=== PATIENT | male | born 1975 | race Caucasian/White ===

== ENCOUNTER 2018-09-14 12:14 | Emergency (ER) | payer OTHER, SELFPAY ==
[2018-09-14 12:22] VITALS: BP 138/93; PULSE 74; RESP 15; TEMP 36.8; O2SAT 100
--- NOTE | 2018-09-14 12:53 | DI.RAD.S_ITS ---
PROCEDURE: XR CHEST 1V INDICATIONS: chest pain TECHNIQUE: One view of the chest was acquired. COMPARISON: None. FINDINGS: Surgical changes and devices: None. Lungs and pleura: Lungs are clear. No pleural effusions or pneumothorax. Mediastinum: Mediastinal contours appear normal. Heart size is normal. Bones and chest wall: No suspicious bony lesions. Overlying soft tissues appear unremarkable. IMPRESSION: No acute cardiopulmonary pathology. Dictated by: Donell Looney M.D. on 09/14/2018 at 13:16 Approved by: Donell Looney M.D. on 09/14/2018 at 13:17
--- NOTE | 2018-09-14 12:55 | ED.ARRPALP ---
HPI - Arrhythmia/Palpitations General Chief Complaint: Dizziness Stated Complaint: 'HEART ISSUES' Time Seen by Provider: 09/14/18 12:22 Source: patient Mode of arrival: ambulatory Limitations: no limitations History of Present Illness HPI narrative: Patient is a 43-year-old male who presents with heart palpitations. 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 He has symptoms follow-up to monitor, he is noted to be in bigeminy at times. He says he drinks 1 cup of coffee daily. No excessive alcohol use. Of palpitations got much worse today. Related Data Previous Rx's Medication Instructions Recorded metoprolol tartrate 12.5 mg PO BID #30 tab 09/14/18 Allergies Allergy/AdvReac Type Severity Reaction Status Date / Time No Known Drug Allergies Allergy Verified 09/14/18 13:28 Review of Systems Review of Systems GENERAL: Denies chills, fatigue, malaise, fever, sweats, travel HEENT: Denies sinus pain, ear pain, sore throat, difficulty swallowing, neck pain RESPIRATORY: Denies dyspnea, cough, wheezing, hemoptysis, sputum. CARDIOVASCULAR: See HPI GASTROINTESTINAL: Denies nausea, vomiting, abdominal pain, diarrhea, constipation, melena. : Denies dysuria, frequency, incontinence, hematuria, urinary retention, flank pain. MUSCULOSKELETAL: Denies weakness, joint pain, or bony pain SKIN: No rash, no erythema, no pruritus NEUROLOGIC: Denies weakness, dizziness, headache, numbness, change in speech, confusion PSYCHIATRIC: No concerning psychosocial issues. 12 point review of systems is negative except for those stated above and HPI [facility] Medical History Low testosterone in male (Acute) Social History Smoking Status: Never smoker Social History Smoking Status: Never smoker Exam Initial Vital Signs Initial Vital Signs: Vital Signs Temperature 98.2 F 09/14/18 12:22 Pulse Rate 74 09/14/18 12:22 Respiratory Rate 15 09/14/18 12:22 Blood Pressure 138/93 H 09/14/18 12:22 Pulse Oximetry 100 09/14/18 12:22 GENERAL: Well-appearing, well-nourished and in no acute distress. HEENT: Head atraumatic,EOMI, pupils reactive, face symmetric, moist mucous membranes CARDIOVASCULAR: Regular rate and rhythm without murmurs, rubs or gallops. RESPIRATORY: Breath sounds equal bilaterally, no wheezes rales or rhonchi. ABDOMEN: Soft, nontender. Normoactive bowel sounds all 4 quadrants. No guarding or rebound. EXTREMITIES: Normal range of motion, no clubbing or edema. Neurovascularly intact NEUROLOGICAL: Alert and oriented x4.Normal gait and speech. Cranial nerves II through XII grossly intact. SKIN: Warm, dry, no laceration, no petechiae, no rashes or lesions. Course Orders Ordered: ED Orders 09/14/18 12:16 EKG-12 Lead Stat 09/14/18 12:45 Complete Blood Count AUTO DIFF Stat Comprehensive Metabolic Panel Stat Lipase Stat Thyroid Stimulating Hormone Stat Troponin & CK Cardiac Panel Stat 09/14/18 12:53 XR chest 1V Stat Vital Signs - 8 hr 09/14/18 12:22 09/14/18 13:02 09/14/18 13:51 Temperature 98.2 F Pulse Rate 74 68 66 Respiratory Rate 15 11 L 11 L Blood Pressure 138/93 H Blood Pressure [Right Arm] 122/78 121/77 Pulse Oximetry 100 100 100 09/14/18 14:11 09/14/18 14:41 Temperature Pulse Rate 62 65 Respiratory Rate 12 15 Blood Pressure 116/78 Blood Pressure [Right Arm] 118/70 Pulse Oximetry 99 98 MDM - Arrhythmia/Palpitations Lab Data Attestation: I reviewed the patient's lab results. Result diagrams: 09/14/18 12:45 09/14/18 12:45 Lab Results 09/14/18 09/14/18 09/14/18 Range/Units 12:45 12:45 12:45 WBC 8.6 (4.5-11.0) X10^3/uL RBC 5.48 (4.5-5.9) X10^6/uL Hgb 16.8 (13.5-17.5) g/dL Hct 47.1 (41-53) % MCV 86.0 (80-100) fL MCH 30.7 (26-34) PG MCHC 35.7 (30-36) % RDW 13.0 (11.6-14.8) % Plt Count 254 (150-400) X10^3/uL Neut % (Auto) 69.0 (50-75) % Lymph % (Auto) 22.5 L (25-40) % [place] % (Auto) 6.9 (3-14) % Eos % (Auto) 0.9 L (2-4) % Baso % (Auto) 0.7 (0-2) % Neut # (Auto) 5900 (7335-9914) /uL Lymph # (Auto) 1900 (8679-8146) /uL [place] # (Auto) 600 (0-900) /uL Eos # (Auto) 100 (0-450) /uL Baso # (Auto) 100 (0-100) /uL Sodium 137 (137-145) mmol/L Potassium 4.1 (3.4-5.1) mmol/L Chloride 97 L (98-107) mmol/L Carbon Dioxide 30 (22-32) mmol/L BUN 27 H (9-20) mg/dL Creatinine 1.00 (0.66-1.25) mg/dL Estimated GFR > 60.0 (>60) mL/min BUN/Creatinine Ratio 27.0 H (6-22) Glucose 93 (70-100) mg/dL Calcium 9.6 (8.4-10.2) mg/dL Total Bilirubin 1.1 (0.2-1.3) mg/dL AST 28 (17-59) IU/L ALT 33 (21-72) IU/L Alkaline Phosphatase 54 (38-126) U/L Total Creatine Kinase 133 (55-170) U/L CK-MB (CK-2) 1.09 (<2.37) ng/mL CK-MB (CK-2) Rel Index 0.8 L (1.5-5.0) % Troponin I < 0.012 (0.01-0.034) ng/mL Total Protein 7.6 (6.3-8.2) g/dL Albumin 4.5 (3.5-5.0) g/dL Globulin 3.1 (1.7-4.1) g/dL Albumin/Globulin Ratio 1.5 (1.0-2.8) Lipase 88 (23-300) U/L TSH 1.61 (0.47-4.68) uIU/mL Imaging Data Chest x-ray: Radiologist's impression: PROCEDURE: XR CHEST 1V INDICATIONS: chest pain TECHNIQUE: One view of the chest was acquired. COMPARISON: None. FINDINGS: Surgical changes and devices: None. Lungs and pleura: Lungs are clear. No pleural effusions or pneumothorax. Mediastinum: Mediastinal contours appear normal. Heart size is normal. Bones and chest wall: No suspicious bony lesions. Overlying soft tissues appear unremarkable. IMPRESSION: No acute cardiopulmonary pathology. Dictated by: Donell Looney M.D. on 09/14/2018 at 13:16 ECG Data Attestation: I personally reviewed and interpreted this ECG as follows: Prior ECG tracings: not available for review Interpretation: Normal sinus rhythm rate 74 PVC noted [place] interval [address] changes no T-wave inversion MDM Narrative Medical decision making narrative: Patient is noted to have frequent PVCs on the monitor but certainly not in bigeminy or trigeminy as he was earlier. He has been off strips tremulous at. He is becoming more symptomatic as time goes on. I discussed with him starting medication such as metoprolol he has follow-up with PCP next week. Discharge Plan Departure Patient Disposition: Home Clinical Impression: Frequent PVCs Discharge Date/Time: 09/14/18 14:43 Interventions: ED Discharge Assessment Last Done: 09/14/18 14:41 Instructions: Premature Ventricular Beats Activity Restrictions/Additional Instructions: *You have been diagnosed with frequent PVCs *What to do: PVCs are benign and less if they are becoming too frequent. *Continue to take medications as directed Metoprolol 12.5 mg twice a day *Follow up with your primary care provider in 2-3 days *Return to ER if you should have increasing chest pain heart palpitations, passing out or any new, worsening or concerning symptoms Prescriptions: New metoprolol tartrate 25 mg tablet 12.5 mg PO BID Qty: 30 RF: 0 Referrals: Deidra Le MD [Primary Care Provider] -
[2018-09-14 12:59] LABS: Add Manual Diff / Slide Review NO; Basophils Absolute Auto 100 /uL (0-100); Basophils Percent Auto 0.7 % (0-2); Eosinophils Absolute Auto 100 /uL (0-450); Eosinophils Percent Auto 0.9 % (2-4); Hematocrit 47.1 % (41-53); Hemoglobin 16.8 g/dL (13.5-17.5); Lymphocytes Absolute Auto 1900 /uL (1100-4500); Lymphocytes Percent Auto 22.5 % (25-40); Mean Corpuscular HGB Conc 35.7 % (30-36); Mean Corpuscular Hemoglobin 30.7 PG (26-34); Monocytes Absolute Auto 600 /uL (0-900); Monocytes Percent Auto 6.9 % (3-14); Neutrophils Absolute Auto 5900 /uL (1500-7000); Platelet Count 254 X10^3/uL (150-400); Red Blood Cell Count 5.48 X10^6/uL (4.5-5.9); White Blood Cell Count 8.6 X10^3/uL (4.5-11.0)
[2018-09-14 13:02] VITALS: BP 122/78; PULSE 68; RESP 11; O2SAT 100
[2018-09-14 13:07] LABS: Alanine Aminotransferase 33 IU/L (21-72); Albumin 4.5 g/dL (3.5-5.0); Albumin Globulin Ratio 1.5 (1.0-2.8); Alkaline Phosphatase 54 U/L (38-126); Aspartate Aminotransferase 28 IU/L (17-59); Bilirubin Total 1.1 mg/dL (0.2-1.3); Blood Urea Nitrogen 27 mg/dL (9-20); Calcium 9.6 mg/dL (8.4-10.2); Carbon Dioxide 30 mmol/L (22-32); Chloride 97 mmol/L (98-107); Creatine Kinase 133 U/L (55-170); Estimated Glomerular Filt Rate > 60.0 mL/min (>60); Globulin 3.1 g/dL (1.7-4.1); Glucose 93 mg/dL (70-100); HEMOLYSIS 19 (0-50); Lipase 88 U/L (23-300); Potassium 4.1 mmol/L (3.4-5.1); Sodium 137 mmol/L (137-145); Total Protein 7.6 g/dL (6.3-8.2)
[2018-09-14 13:19] LABS: Troponin I < 0.012 ng/mL (0.01-0.034)
[2018-09-14 13:22] LABS: CKMB % Relative Index 0.8 % (1.5-5.0); Creatine Kinase MB 1.09 ng/mL (<2.37)
[2018-09-14 13:51] VITALS: BP 121/77; PULSE 66; RESP 11; O2SAT 100
[2018-09-14 14:01] LABS: Thyroid Stimulating Hormone 1.61 uIU/mL (0.47-4.68)
[2018-09-14 14:11] VITALS: BP 118/70; PULSE 62; RESP 12; O2SAT 99
[2018-09-14 14:41] VITALS: BP 116/78; PULSE 65; RESP 15; O2SAT 98
== END 2018-09-14 14:43 | disposition home or self-care (01) ==
PROVIDERS: Emergency Provider Emergency Medicine; PCP Internal Medicine Geriatric Medicine
DX: I49.3 Ventricular premature depolarization (principal); R42 Dizziness and giddiness; R00.2 Palpitations
CPT/HCPCS: 36591; 71045; 80053; 82550; 82553; 83690; 84443; 84484; 85025; 93005; 93010; 99283; 99285

== ENCOUNTER 2019-10-23 17:10 | Emergency (ER) | payer OTHER, SELFPAY ==
[2019-10-23 17:15] VITALS: BP 155/96; PULSE 104; RESP 14; TEMP 36.4; O2SAT 100
--- NOTE | 2019-10-23 17:17 | DI.RAD.S_ITS ---
PROCEDURE: XR KNEE RT 3V INDICATIONS: struck windowsill, pain with weight bearing TECHNIQUE: 3 views of the knee were acquired. COMPARISON: None. FINDINGS: Bones: No fractures or dislocations. No suspicious bony lesions. Bulky tricompartment degenerative osteophytes. Soft tissues: No joint effusion. No suspicious soft tissue calcifications. IMPRESSION: Bulky tricompartment degenerative osteophytes. No evidence acute bony abnormality of the right knee. If clinical suspicion and/or symptoms persist, further assessment with repeat plain films, or advanced imaging (e.g., CT, MRI, or bone scan) may be helpful for further assessment. Dictated by: Jerry Szymanski M.D. on 10/23/2019 at 18:11 Approved by: Jerry Szymanski M.D. on 10/23/2019 at 18:11
--- NOTE | 2019-10-23 18:21 | ED_ITS ---
HPI - Extremity Injury (Lower) General Chief Complaint: Extremity Injury, Lower Stated Complaint: smashed knee Time Seen by Provider: 10/23/19 18:17 Source: patient Mode of arrival: Ambulatory Limitations: no limitations History of Present Illness HPI Narrative: 44-year-old male. 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 During training was going in through a 1st floor window and hit his knee on the window frame. Had pain with ambulation however was able to ambulate afterwards. Started to develop swelling. Now has a very difficult time standing on his knee. No other injuries reported from the event Related Data Previous Rx's Medication Instructions Recorded metoprolol tartrate 12.5 mg PO BID #30 tab 09/14/18 Allergies Allergy/AdvReac Type Severity Reaction Status Date / Time No Known Drug Allergies Allergy Verified 09/14/18 13:28 Review of Systems Constitutional Constitutional: Denies headache(s) ENT Ears, Nose, Mouth, and Throat: Denies headache(s) Cardiovascular Cardiovascular: Denies chest pain and Denies dyspnea Respiratory Respiratory: Denies dyspnea Musculoskeletal Musculoskeletal: Denies tingling Comments: Right knee pain Integumentary/Breasts Skin/Breast: Denies lesions and Denies rash Neurologic Neurologic: Denies burning sensations, Denies headache(s) and Denies tingling Hematologic/Lymphatic Hematologic/Lymphatic: Denies easy bleeding and Denies easy bruising Patient History Medical History Low testosterone in male (Acute) Social History Smoking Status: Never smoker Smoking Status: Never smoker alcohol intake frequency: a few times a week Substance Use Type: does not use Exam Initial Vital Signs Initial Vital Signs: Vital Signs Temperature 97.5 F L 10/23/19 17:15 Pulse Rate 104 H 10/23/19 17:15 Respiratory Rate 14 10/23/19 17:15 Blood Pressure 155/96 H 10/23/19 17:15 Pulse Oximetry 100 10/23/19 17:15 Const General: cooperative, comfortable and well developed Limitations: mental status not altered HENMT Head: normal to inspection and normocephalic Skin Lesions: no lesions Rashes: no rashes Neuro General: patient alert, patient awake and patient oriented x3 Cognition: normal cognition Speech: speech normal Extrem Other: Right ankle unremarkable, right hip unremarkable, patient has tenderness to palpation over the quadriceps tendon. He is able to flex and extend however does have some discomfort with this. Is able to do straight leg raise. ACL MCL PCL and LCL all intact functional testing. Course Orders Ordered: ED Orders 10/23/19 17:17 XR knee RT 3V Stat Vital Signs Vital signs: Vital Signs - 8 hr 10/23/19 17:15 Temperature 97.5 F L Pulse Rate 104 H Respiratory Rate 14 Blood Pressure 155/96 H Pulse Oximetry 100 [facility] - Extremity Injury (Lower) Imaging Data Extremity x-ray #1: Radiologist's Impression: [address] [address] XRay Report Signed Patient: Ryan Saravia GMR#: [id number] : 1975Acct:[id number] Age/Sex: 44 / MDate of Service: 10/23/19 Loc: ED Accession Number: [id number] Procedure: XR knee RT 3V Ordering Provider: Chantal Justin MD PROCEDURE: XR KNEE RT 3V INDICATIONS: struck windowsill, pain with weight bearing TECHNIQUE: 3 views of the knee were acquired. COMPARISON: None. FINDINGS: Bones: No fractures or dislocations. No suspicious bony lesions. Bulky tricompartment degenerative osteophytes. Soft tissues: No joint effusion. No suspicious soft tissue calcifications. IMPRESSION: Bulky tricompartment degenerative osteophytes. No evidence acute bony abnormality of the right knee. If clinical suspicion and/or symptoms persist, further assessment with repeat plain films, or advanced imaging (e.g., CT, MRI, or bone scan) may be helpful for further assessment. Dictated by: Jerry Szymanski M.D. on 10/23/2019 at 18:11 Approved by: Jerry Szymanski M.D. on 10/23/2019 at 18:11 [facility] Narrative Medical decision making narrative: No fractures are noted on the x-ray. Neurovascularly intact. Feel we can hold on further workup for now. Patient was given instructions as far as icing and elevation. Work note provided. L and I paperwork completed. Patient was given return precautions. Expressed understanding and agreement. Discharge Plan Departure Patient Disposition: Home Clinical Impression: Effusion of knee joint right Discharge Date/Time: 10/23/19 18:37 Instructions: How To Perform RICE (Rest, Ice, Compress, Elevate), DI for Knee Effusion Activity Restrictions/Additional Instructions: You can walk on your knee. You can use an Bladimir bandage or knee brace for comfort. Keep it elevated and iced like we discussed. Return to the emergency department for any new or worsening symptoms Prescriptions: No Action metoprolol tartrate 25 mg tablet 12.5 mg PO BID Qty: 30 RF: 0 Referrals: Deidra Le MD [Primary Care Provider] - Stand Alone Forms: Work Release Note
== END 2019-10-23 18:37 | disposition home or self-care (01) ==
PROVIDERS: Emergency Provider Emergency Medicine; PCP Internal Medicine Geriatric Medicine
DX: M25.461 Effusion, right knee (principal); W22.8XXA Striking against or struck by other objects, initial encounter; Y99.0 Civilian activity done for income or pay
CPT/HCPCS: 73562; 99281; 99283

== ENCOUNTER → 2020-12-09 08:41 | Outpatient (CLI) | payer OTHER, SELFPAY ==
[2020-12-09 11:33] LABS: COVID19 -Nasal RAPID Negative (Negative)
== END ==
PROVIDERS: PCP Internal Medicine Geriatric Medicine; Visit Provider Student in an Organized Health Care Education/Training Program
DX: Z20.822 Contact with and (suspected) exposure to COVID-19 (principal)
CPT/HCPCS: 87635

== ENCOUNTER 2021-11-22 15:54 | Observation (INO) | payer OTHER, SELFPAY ==
[2021-11-22] VITALS (17 sets, daily range): BP systolic 108–128; BP diastolic 57–81; PULSE 81–107; RESP 11–41; TEMP 36.6; O2SAT 95–100; BMI 35.9
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
--- NOTE | 2021-11-22 15:55 | DI.RAD.S_ITS ---
PROCEDURE: XR CHEST 1V INDICATIONS: chest pain TECHNIQUE: One view of the chest was acquired. COMPARISON: [facility], CR, XR CHEST 1V, 09/14/2018, 13:01. FINDINGS: Surgical changes and devices: None. Lungs and pleura: Lungs are clear. No pleural effusions or pneumothorax. Mediastinum: Mediastinal contours appear normal. Heart size is normal. Bones and chest wall: No suspicious bony lesions. Overlying soft tissues appear unremarkable. IMPRESSION: No acute process. Dictated by: Chris Silva M.D. on 11/22/2021 at 16:13 Approved by: Chris Silva M.D. on 11/22/2021 at 16:14
[2021-11-22 16:06] LABS: Add Manual Diff / Slide Review NO; Basophils Absolute Auto 100 /uL (0-100); Basophils Percent Auto 0.8 % (0-2); Eosinophils Absolute Auto 100 /uL (0-450); Eosinophils Percent Auto 0.5 % (2-4); Hematocrit 47.7 % (41-53); Hemoglobin 16.7 g/dL (13.5-17.5); Lymphocytes Absolute Auto 2400 /uL (1100-4500); Lymphocytes Percent Auto 19.3 % (25-40); Mean Corpuscular Hemoglobin 30.7 PG (26-34); Mean Corpuscular Volume 87.7 fL (80-100); Monocytes Absolute Auto 1000 /uL (0-900); Monocytes Percent Auto 8.3 % (3-14); Neutrophils Absolute Auto 8900 /uL (1500-7000); Neutrophils Percent Auto 71.1 % (50-75); Platelet Count 325 X10^3/uL (150-400); Red Blood Cell Count 5.45 X10^6/uL (4.5-5.9); Red Cell Distribution Width 13.1 % (11.6-14.8); White Blood Cell Count 12.5 X10^3/uL (4.5-11.0)
[2021-11-22] MEDS: SODIUM CHLORIDE 0.9% 1,000 ML 150 ML IV (16:06)
[2021-11-22 16:10] LABS: INR 1.1 (0.9-1.3); Prothrombin Time 12.4 SECONDS (10.1-12.7)
[2021-11-22 16:11] LABS: Alanine Aminotransferase 22 IU/L (<50); Albumin Globulin Ratio 1.7 (1.0-2.8); Alkaline Phosphatase 66 U/L (38-126); Aspartate Aminotransferase 29 IU/L (17-59); BUN Creatinine Ratio 8.9 (6-22); Bilirubin Total 0.9 mg/dL (0.2-1.3); Blood Urea Nitrogen 15 mg/dL (9-20); Calcium 9.7 mg/dL (8.4-10.2); Carbon Dioxide 18 mmol/L (22-32); Chloride 107 mmol/L (98-107); Creatine Kinase 261 U/L (55-170); Estimated Glomerular Filt Rate 50 mL/min (>60); Glucose 93 mg/dL (70-100); HEMOLYSIS < 15 (0-50); Lipase 142 U/L (23-300); Potassium 3.8 mmol/L (3.4-5.1); Sodium 141 mmol/L (137-145)
[2021-11-22 16:12] LABS: PTT Partial Thromboplastin Tim 33 SECONDS (26.4-36.2)
[2021-11-22 16:23] LABS: Troponin I 0.018 ng/mL (0.01-0.034)
[2021-11-22 16:27] LABS: CKMB % Relative Index 0.6 % (1.5-5.0); Creatine Kinase MB 1.51 ng/mL (<2.37)
[2021-11-22 18:48] LABS: Troponin I 0.022 ng/mL (0.01-0.034)
[2021-11-22 18:57] LABS: D Dimer 202 ng/mL (<230)
[2021-11-22] MEDS: NITROGLYCERIN 0.4 MG SL TAB SL ×3 (19:02→19:24)
[2021-11-22] MEDS: ACETAMINOPHEN 325 MG TABLET 975 MG PO (19:14)
--- NOTE | 2021-11-22 19:17 | PC.NURSE ---
Pain decreased from 2/10 to 1/10 in chest after first nitro. Also reports pain in head. Given 975mg tylenol per verbal order from Dr. Ambrosio.
--- NOTE | 2021-11-22 19:34 | PC.NURSE ---
No change in pain after 2nd and 3rd dose of nitro, pain is 1/10.
[2021-11-22] MEDS: SODIUM CHLORIDE 0.9% 1,000 ML 1000 ML IV (19:54)
[2021-11-22 21:22] LABS: COVID19 -Nasal RAPID Negative (Negative)
--- NOTE | 2021-11-22 21:46 | DI.NM.S_ITS ---
PROCEDURE: NM EXERCISE TREADMILL NON NUC COMPARISON: None. INDICATIONS: chest pain FINDINGS: The patient exercised for 11 minutes and 21 seconds, reaching 12.0 METs and SANDRA -2%. 97% of maximum predicted heart rate achieved. Appropriate BP response to exercise. No angina during the study. No ST changes and no ectopy during the study. IMPRESSION: Low risk, normal treadmill ECG only stress test with average exercise tolerance (SANDRA -2%). Dictated by: Cassi Bernard MD on 11/23/2021 at 17:04 Approved by: Cassi Bernard MD on 11/23/2021 at 17:05
[2021-11-22] MEDS: ATORVASTATIN 20 MG TABLET 40 MG PO (22:13)
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
--- NOTE | 2021-11-22 23:29 | PC.NURSE ---
Pt wanted to take his home medication, Flecainide. Received order from Dr Leiva to start Flecainide and discontinued ondansetron due to interaction with flecainide.
[2021-11-23] VITALS: BP 99/48; PULSE 82; RESP 17; TEMP 36.4; O2SAT 96
[2021-11-23 06:00] VITALS: BP 98/47; PULSE 75; RESP 16; TEMP 36.2; O2SAT 98
[2021-11-23 06:39] LABS: BUN Creatinine Ratio 12.4 (6-22); Blood Urea Nitrogen 14 mg/dL (9-20); Calcium 8.5 mg/dL (8.4-10.2); Carbon Dioxide 26 mmol/L (22-32); Chloride 106 mmol/L (98-107); Estimated Glomerular Filt Rate > 60 mL/min (>60); Glucose 81 mg/dL (70-100); HEMOLYSIS < 15 (0-50); Potassium 3.8 mmol/L (3.4-5.1); Sodium 140 mmol/L (137-145)
[2021-11-23 06:49] LABS: Troponin I < 0.012 ng/mL (0.01-0.034)
[2021-11-23 07:00] VITALS: O2SAT 99
[2021-11-23 08:00] VITALS: BP 135/90; PULSE 67; RESP 18; TEMP 36.3; O2SAT 99
[2021-11-23] MEDS: ASPIRIN EC 81 MG TABLET PO (08:37)
[2021-11-23] MEDS: FLECAINIDE 100 MG TABLET 50 MG PO (09:02)
[2021-11-23 12:00] VITALS: BP 134/80; PULSE 72; RESP 17; TEMP 36.4; O2SAT 98
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
--- NOTE | 2021-11-23 14:53 | PM.TREADMILL ---
Cardiac Stress Test Report Referral & Results Date Patient Seen: 11/23/21 Time Patient Seen: 14:53 Requesting provider: Maurilio Leiva Indication: Chest pain Rest ECG: Sinus rhythm Procedure Note: Standard Darvin protocol, 11:21 minutes,12 METS Fair exercise capacity, SANDRA -2% Normal hemodynamic response to exercise No chest pain or anginal symptoms No significant ST changes at peak exercise No ectopy Impression: Normal exercise stress test Please note: Actual ECG tracings can be found in the PACS system.
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
--- NOTE | 2021-11-23 18:53 | PC.NURSE ---
Pt A&OX3, VSS, afebrile on RA. He denies any palpitations, CP, or SB. He appears calm and relaxed. NSR with PVC's on tele. He completes the stress test this afternoon and is cleared for discharge home this evening after dinner. He verbalizes understanding of discharge plan and follow up as well as return of symptoms. He is escorted with spouse to private vehicle for discharge home this evening at approximately 1800 with all of his belongings.
== END 2021-11-23 18:00 | disposition home or self-care (01) ==
LOC: ED 19:49 → AC 19:54
PROVIDERS: Admitting Provider Internal Medicine; Emergency Provider Emergency Medicine; PCP Internal Medicine Geriatric Medicine; Referring Provider Emergency Medicine; Visit Provider Internal Medicine
DX: R07.9 Chest pain, unspecified (principal); N17.9 Acute kidney failure, unspecified; Z86.16 Personal history of COVID-19; Z20.822 Contact with and (suspected) exposure to COVID-19
CPT/HCPCS: 36415; 71045; 80048; 80053; 82550; 82553; 83690; 84484; 85025; 85379; 85610; 85730; 87635; 93005; 93017; 96360; 96361; 99284; C9803; G0378